=== PATIENT | female | born 1950 | race Caucasian/White ===

== ENCOUNTER 2017-09-23 10:46 | Emergency (ER) | payer OTHER ==
[~2017-09-23] VITALS: Ht 162.6 cm; Wt 60.8 kg
[~2017-09-23 10:46] MED LIST: CRESTOR20 MG PO; DIOVAN40 MG PO; IBUPROFEN800 MG PO; SEPTRA DS TABLE1 TAB PO; TEKTURNA150 MG PO
[2017-09-23] MEDS ORDERED: PAXIL20 MG (11:03)
[2017-09-23] MEDS ORDERED: DICLOFENAC SODI50 MG PO (14:57)
[2017-09-23] MEDS ORDERED: MEDROLPACK PO (14:57)
== END 2017-09-23 15:57 | disposition home or self-care (01) ==
LOC: ER 10:46
DX: M62.838 Other muscle spasm (principal); M54.2 Cervicalgia

== ENCOUNTER 2018-06-13 09:36 | Emergency (ER) | payer OTHER ==
[~2018-06-13] VITALS: Ht 162.6 cm; Wt 63.5 kg
[~2018-06-13 09:36] MED LIST changes: +DICLOFENAC SODI50 MG PO; +MEDROLPACK PO; +PAXIL20 MG
== END 2018-06-13 11:58 | disposition home or self-care (01) ==
LOC: ER 09:36
DX: L03.011 Cellulitis of right finger (principal)

== ENCOUNTER 2018-12-12 11:06 | Emergency (ER) | payer OTHER ==
[~2018-12-12] VITALS: Ht 162.6 cm; Wt 62.6 kg
[2018-12-12] MEDS ORDERED: LIPITOR20 MG (11:29)
[2018-12-12] MEDS ORDERED: ZOLOFT20 MG/1 ML (11:29)
== END 2018-12-12 14:00 | disposition home or self-care (01) ==
LOC: ER 11:06
DX: M70.52 Other bursitis of knee, left knee (principal)